=== PATIENT | female | born 1945 | race Caucasian/White ===

== ENCOUNTER → 2017-11-27 | Outpatient (CLI) | payer MEDICARE, OTHER ==
[~2017-11-27] MED LIST: AMLO-104 PO; CALC500T86 PO; CHOL200025 PO; CLON-329 PO; COMODPT OU; CPAP; FLAX100042 PO; LATA2.5D7 OU; LISI20TA29 PO; METO100T20 PO; MULT1CAP48 PO; OMEG-11 PO; OXYGENHOME INH; [UNRECOGNIZED DRUG - CODE] PO
--- NOTE | 2017-11-27 14:15 | RADIOLOGY IMAGING REPORT ---
FACILITY: [facility] PATIENT NAME: Dayami Warren : 1945 MR: [id number] V: [id number] EXAM DATE: ORDERING PHYSICIAN: DIAMOND RAMÍREZ TECHNOLOGIST: Location: [facility] - [place] Patient: Dayami Warren : 1945 Visit/Account:[id number] Date of Sevice: 11/27/2017 Exam type: CHEST PA AND LAT History: dyspnea on exertion X 2 weeks, O2 sat 84% RA Comparison: September 01, 2008. Findings: The lungs are free of acute effusions, infiltrates or edema. There is no evidence of a pneumothorax or pneumomediastinum. Cardiac silhouette is normal in size. There suggestion of a hiatal hernia. T here are moderate spondylotic changes of the thoracic spine. IMPRESSION: 1. No acute cardiopulmonary process is seen Report Dictated By: Radha Smith MD at 11/27/2017 2:10 PM Report E-Signed By: Radha Smith MD at 11/27/2017 2:11 PM WSN:[email or web address]
== END ==
LOC: RAD 13:32
PROVIDERS: ATTEND Internal Medicine
DX: M47.894 Other spondylosis, thoracic region (principal); K44.9 Diaphragmatic hernia without obstruction or gangrene
CPT/HCPCS: 71046

== ENCOUNTER → 2017-12-05 | Outpatient (CLI) | payer MEDICARE, OTHER | LOC: RESP 02:43 | PROVIDERS: ATTEND Internal Medicine | DX: J44.9 Chronic obstructive pulmonary disease, unspecified (principal) | CPT/HCPCS: 94060; 94726; 94729 ==

== ENCOUNTER 2018-05-30 01:18 | Day surgery (SDC) | payer MEDICARE, OTHER ==
[~2018-05-30] VITALS: Ht 152.4 cm; Wt 57.2 kg
[~2018-05-30 01:18] MED LIST changes: +ALB18R INH; +SAL50R INH
[2018-05-30] MEDS ORDERED: NORMOSOL R SOLN(*) 1000 ML BAG 1,000 ML IV ONE (12:51)
[2018-05-30] MEDS ORDERED: LIDOCAINE/SOD BICARB 8.4% SYR SC ONE (12:53)
[2018-05-30 13:23] VITALS: BP 146/91
[2018-05-30] MEDS ORDERED: OPHTHALMIC PROCEDURE 2 OS PRN ×2 (14:00)
[2018-05-30] MEDS ORDERED: OPHTHALMIC PROCEDURE 1 OS PRN (14:00)
[2018-05-30 14:59] VITALS: BP 157/81
[2018-05-30] MEDS ORDERED: acetaZOLAMIDE 500 MG CAPCR PO ONE (15:00)
--- NOTE | 2018-05-30 16:44 | FOSTER LEFT EYE CATARACT ---
EVENT DATE: May 30, 2018 SURGEON: Saturnino Snider MD ANESTHESIOLOGIST: Dustin Haji MD ANESTHESIA: MAC PREOPERATIVE DIAGNOSIS Cataract, left eye. POSTOPERATIVE DIAGNOSIS Cataract, left eye. PROCEDURE Phacoemulsification of cataractous lens with implantation of an intraocular lens, left eye. DESCRIPTION OF PROCEDURE The risks, benefits, and alternatives were carefully discussed with the patient, and preoperative consent was obtained. The patient was brought to the operating room after receiving topical anesthetic. The patient was prepped and draped using sterile technique in the usual manner. A stab incision was made, and the chamber was inflated with preservative-free lidocaine. DuoVisc was injected to inflate the chamber. A 2.2 mm blade was used to enter the anterior chamber. Utrata forceps were used to tear a circular capsulorrhexis. BSS was used to hydrodissect the nucleus. Phaco tip was introduced, and the nucleus was chopped into four quadrants. Each quadrant was removed. The I/A tip was used to remove the cortex. The bag was inflated with ProVisc. The intraocular lens was injected into the capsular bag. The I/A tip was used to remove the ProVisc. The wound was found to be watertight. Vigamox, Nevanac, and Maxitrol ointment were placed in the patient's eye. The patient's eye was patched, and the patient was taken to the recovery room in stable condition. The patient was examined in the recovery room and found to be stable prior to release from the hospital. SHANNAN
== END 2018-05-30 15:20 | disposition home or self-care (01) ==
LOC: OR 01:18
PROVIDERS: ATTEND Ophthalmology
DX: H25.12 Age-related nuclear cataract, left eye (principal)
CPT/HCPCS: 66982; A9270; V2632

== ENCOUNTER 2018-07-04 02:07 | Day surgery (SDC) | payer MEDICARE, OTHER ==
[~2018-07-04] VITALS: Ht 152.4 cm; Wt 57.6 kg
[~2018-07-04 02:07] MED LIST changes: +[UNRECOGNIZED DRUG - OTHER] PO
[2018-07-04 12:42] VITALS: BP 156/81
[2018-07-04] MEDS ORDERED: ALBUTEROL/IPRATROPIUM 3 ML NEB ONE (12:58)
[2018-07-04] MEDS ORDERED: LIDOCAINE/SOD BICARB 8.4% SYR ID ONE (13:00)
[2018-07-04] MEDS ORDERED: OPHTHALMIC PROCEDURE 1 OD PRN (13:00)
[2018-07-04] MEDS ORDERED: NORMOSOL R SOLN(*) 1000 ML BAG 1,000 ML IV PRN (13:00)
[2018-07-04] MEDS ORDERED: acetaZOLAMIDE 500 MG CAPCR PO ONE (13:00)
[2018-07-04] MEDS ORDERED: OPHTHALMIC PROCEDURE 2 OD PRN ×2 (13:00)
[2018-07-04 14:13] VITALS: BP 156/85
--- NOTE | 2018-07-04 17:32 | FOSTER RIGHT EYE CATARACT ---
EVENT DATE: July 04, 2018 SURGEON: Saturnino Snider MD ANESTHESIOLOGIST: Jamal Bowles MD ANESTHESIA: MAC PREOPERATIVE DIAGNOSIS Cataract, right eye. POSTOPERATIVE DIAGNOSIS Cataract, right eye. PROCEDURE Phacoemulsification of cataractous lens with implantation of an intraocular lens, right eye. DESCRIPTION OF PROCEDURE The risks, benefits, and alternatives were carefully discussed with the patient, and preoperative consent was obtained. The patient was brought to the operating room after receiving topical anesthetic. The patient was prepped and draped using sterile technique in the usual manner. A stab incision was made, and the chamber was inflated with preservative-free lidocaine. DuoVisc was injected to inflate the chamber. A 2.2 mm blade was used to enter the anterior chamber. Utrata forceps were used to tear a circular capsulorrhexis. BSS was used to hydrodissect the nucleus. Phaco tip was introduced, and the nucleus was chopped into four quadrants. Each quadrant was removed. The I/A tip was used to remove the cortex. The bag was inflated with ProVisc. The intraocular lens was injected into the capsular bag. The I/A tip was used to remove the ProVisc. The wound was found to be watertight. Vigamox, Nevanac, and Maxitrol ointment were placed in the patient's eye. The patient's eye was patched, and the patient was taken to the recovery room in stable condition. The patient was examined in the recovery room and found to be stable prior to release from the hospital. SHANNAN
[2018-07-09] MEDS ORDERED: METO100T20 PO (09:36)
== END 2018-07-04 14:40 | disposition home or self-care (01) ==
LOC: OR 02:07
PROVIDERS: ATTEND Ophthalmology
DX: H25.11 Age-related nuclear cataract, right eye (principal); I10 Essential (primary) hypertension; J44.9 Chronic obstructive pulmonary disease, unspecified
CPT/HCPCS: 66984; 94640; A9270; J7620; V2632

== ENCOUNTER → 2018-08-05 | Outpatient (CLI) | payer MEDICARE, OTHER ==
--- NOTE | 2018-08-05 13:32 | RADIOLOGY IMAGING REPORT ---
FACILITY: [facility] PATIENT NAME: Dayami Warren : 1945 MR: [id number] V: [id number] EXAM DATE: ORDERING PHYSICIAN: YANELI ADKINS TECHNOLOGIST: Location: [facility] - [place] Patient: Dayami Warren : 1945 Visit/Account:[id number] Date of Sevice: 08/05/2018 DEXA Scan Clinical history: Menopause. Comparison: DEXA scan from 08/21/2006. LUMBAR SPINE: The bone mineral density (BMD) measured from L1-L4 correlates with a Z-score of 4.3 and a T-score of 2.4 which is Normal as defined by the World Health Organization. The corresponding risk of fracture in the lumbar spine is Not increased compared with a young adult reference population. This value madrid s increased by 5.1 % since the prior study. More than 5% change is considered significant. HIP: Bone mineral density (BMD) measured in the LEFT total hip region correlates with a Z-score 1.9 and a T-score of 0.2 which is normal as defined by the World Health Organization. The corresponding risk of fracture in the hip is Not i ncreased compared to a young adult reference population. This value has decrease by 6.5 % since the p rior study. More than 5% change is considered significant. T score left femoral neck -0.6 Bone mineral density (BMD) measured in the Femoral Neck region measures 0.949 g/cm?. IMPRESSION: 1. Lumbar spine: Normal. There has been 5.1% increase in the bone mineral density since the previou s exam. 2. Left Total Hip: Normal. There has been 6.5% decrease in the bone mineral density since the previ ous exam. 3. Femoral Neck: Bone Mineral Density is 0.949 g/cm? The next DEXA scan of this patient should include the following sites: L1-L4 and the left hip. FRAX? WHO Fracture Risk Assessment Tool link: <http://www.shef.ac.uk/FRAX/tool.jsp?locationValue=9> PLEASE NOTE: 1) The World Health Organization defines low BMD as follows: T-score Normal > -1 Osteopenia < -1 and > -2.5 Osteoporosis < -2.5 without fractures Established osteoporosis < -2.5 with fractures 2) In general, you may wish to consider: Diagnosis Treatment Follow-up DEXA Normal BMD Prevention 2-3 years Osteopenia Prevention/therapy 1-2 years Osteoporosis Therapy Yearly 3) Fracture risk estimated from the T-score is more accurate for vertebral fractures (often spontane ous) than for hip fractures. Report Dictated By: Radha Smith MD at 08/05/2018 1:26 PM Report E-Signed By: Radha Smith MD at 08/05/2018 1:27 PM WSN:[email or web address]
== END ==
LOC: RAD 00:58
PROVIDERS: ATTEND Nurse Practitioner Family
DX: Z78.0 Asymptomatic menopausal state (principal)
CPT/HCPCS: 77080

== ENCOUNTER → 2018-09-10 | Outpatient (CLI) | payer MEDICARE, OTHER ==
[~2018-09-10] MED LIST changes: +CYAN250013
--- NOTE | 2018-09-10 11:03 | RADIOLOGY IMAGING REPORT ---
FACILITY: [facility] PATIENT NAME: Dayami Warren : 1945 MR: [id number] V: [id number] EXAM DATE: ORDERING PHYSICIAN: PABLO GRIJALVA TECHNOLOGIST: Location: [facility] - [place] Patient: Dayami Warren : 1945 Visit/Account:[id number] Date of Sevice: 09/10/2018 CHEST PA LAT Indication: surgical clearance; COPD Comparison: Chest x-ray 11/27/2017 Findings: Lungs: There is hyperinflation and flattening of the diaphragms. The lungs are clear. Mediastinum/pulmonary vasculature: Heart size and pulmonary vasculature are normal. Bones/soft tissues: Normal. IMPRESSION: 1. Findings consistent with COPD. 2. Clear lungs. Report Dictated By: Estevan Nam at 09/10/2018 10:59 AM Report E-Signed By: Estevan Nam at 09/10/2018 10:59 AM WSN:[email or web address]
== END ==
LOC: RAD 09:39
PROVIDERS: ATTEND Surgery
DX: J44.9 Chronic obstructive pulmonary disease, unspecified (principal)
CPT/HCPCS: 71046

== ENCOUNTER 2018-10-10 00:30 | Day surgery (SDC) | payer MEDICARE, OTHER ==
[~2018-10-10] VITALS: Ht 152.4 cm; Wt 54.9 kg
[2018-10-10] MEDS ORDERED: PROPOFOL EMUL(*) 10MG/ML 20 ML 20 ML ONE (07:12)
[2018-10-10 08:20] VITALS: BP 148/79
[2018-10-10] MEDS ORDERED: LIDOCAINE/SOD BICARB 8.4% SYR ID ONE (08:30)
[2018-10-10] MEDS ORDERED: NORMOSOL R SOLN(*) 1000 ML BAG 1,000 ML IV PRN (08:30)
[2018-10-10 09:22] VITALS: BP 123/60
[2018-10-10 09:30] VITALS: BP 123/65
--- NOTE | 2018-10-10 09:34 | Short(Outpt) Discharge Summary ---
Discharge Summary Reason for Hosp/Final Diag: (1) Fecal occult blood test positive Discharge Instructions Home Meds Active Scripts Metoprolol Succinate (METOPROLOL SUCCINATE) 100 Mg Tab.er.24h, 1 TAB PO QDAY, #90 TAB 1 Refill Prov:DIAMOND RAMÍREZ MD 07/09/18 Verapamil Hcl (VERAPAMIL ER PM) 300 Mg Cap24h.pct, 1 CAP PO QHS, #90 CAP.SR.24H 0 Refills Prov:DIAMOND RAMÍREZ MD 04/30/18 Clonidine Hcl (CLONIDINE HCL) 0.2 Mg Tablet, 1 TAB PO BID, #180 TAB 3 Refills Prov:DIAMOND RAMÍREZ MD 03/11/18 Albuterol Sulfate (VENTOLIN HFA) 18 Gm Inh, 2 PUFF INH Q4-6H PRN for shortness of breath, #1 INH 11 Refills Prov:DIAMOND RAMÍREZ MD 12/22/17 Salmeterol Xinafoate (SEREVENT DISKUS) 50 Mcg Inh, 1 PUFF INH Q12H, #1 INH 11 Refills Prov:DIAMOND RAMÍREZ MD 12/22/17 Lisinopril (LISINOPRIL) 20 Mg Tablet, 1 TAB PO BID, #180 TAB 3 Refills Prov:DIAMOND RAMÍREZ MD 08/05/17 Reported Medications Cyanocobalamin (Vitamin B-12) (Vitamin B12) 2,500 Mcg Tab.chew, 1000 MCG DAILY 09/10/18 [Organic Protein] No Conflict Check, 1 DOSE-PACK PO DAILY 06/30/18 Cpap (CPAP HOME) Inha, HS 11 cm H2O 08/09/15 Oxygen (OXYGEN) Inha, 3 L INH 08/09/15 Kamiah-3 Fatty Acids/Fish Oil (FISH OIL 1,000 MG CAPSULE) 1 Each Capsule, 1 CAP PO BID, CAPSULE 08/09/15 Cholecalciferol (Vitamin D3) (VITAMIN D3) 2,000 Unit Capsule, 1 CAP PO QDAY, CAPSULE 01/22/14 Diet: Regular Activity: As Tolerated Special Instructions: we will call you in 10 days with biopsy results. PABLO GRIJALVA Oct 10, 2018 09:34
[2018-10-10 10:00] VITALS: BP 128/68
[2018-10-10 10:23] VITALS: BP 135/70
[2018-10-10 10:25] VITALS: BP 133/86
== END 2018-10-10 10:30 | disposition home or self-care (01) ==
LOC: OR 00:30
PROVIDERS: ATTEND Surgery
DX: K57.30 Diverticulosis of large intestine without perforation or abscess without bleeding (principal); Q27.33 Arteriovenous malformation of digestive system vessel
CPT/HCPCS: 00811; 45380; 88305; J2704

== ENCOUNTER 2018-12-02 15:00 | Outpatient (RCR) | payer MEDICARE, OTHER | END 2018-12-03 | LOC: CARD 15:00 | PROVIDERS: ATTEND Nurse Practitioner Family | DX: J44.9 Chronic obstructive pulmonary disease, unspecified (principal) | CPT/HCPCS: G0424 ×19 ==